=== PATIENT | female | born 1960 | race Caucasian/White ===

== ENCOUNTER 2020-08-16 08:25 | Emergency (ER) | payer MEDICARE ==
[~2020-08-16] VITALS: Ht 157.5 cm; Wt 75.0 kg
[~2020-08-16 08:25] MED LIST: ATOR10TA60 PO; DULO60CA45 PO; MIRT30TA93 PO; OMEP20CA16 PO; OMEP40CA45 PO; TEMA30CA PO
--- NOTE | 2020-08-16 09:01 | ED.ADGEN ---
Past Medical History Past Medical History: Anxiety, COPD, Depression, High Cholesterol Past Surgical History: Hysterectomy, Other Additional Past Surgical Histo: SVITLANA IN LEFT LEG Smoking Status: Current Every Day Smoker Alcohol Use: Occasionally Drug Use: None General Adult EDM: Chief Complaint: ABDOMINAL PAIN HPI: HPI: Patient is a 60-year-old female who arrives ambulatory to the emergency department complaint of 3-week history of loose stools. Patient also states during this time she is experienced lower abdominal/pelvic pain as well as pain with voiding. Patient is concerned she may have a kidney infection as a relates to her lower abdominal pain. Patient states she tried to meet with her primary care physician however she was unable to obtain an appointment. Patient denies any fevers. She further denies any upper abdominal pain, chest pain or shortness of air. She is awake, alert and nontoxic-appearing. Review of Systems: Review of Systems: Constitutional: Denies fever or chills. [] Eyes: Denies change in visual acuity. [] HENT: Denies nasal congestion or sore throat. [] Respiratory: Denies cough or shortness of breath. [] Cardiovascular: Denies chest pain or edema. [] GI: Reports abdominal pain. Denies nausea, vomiting, bloody stools or diarrhea. [] : Reports dysuria. [] Musculoskeletal: Denies back pain or joint pain. [] Integument: Denies rash. [] Neurologic: Denies headache, focal weakness or sensory changes. [] Endocrine: Denies polyuria or polydipsia. [] Lymphatic: Denies swollen glands. [] Psychiatric: Denies depression or anxiety. [] Family History: Family History: Noncontributory Current Medications: Current Medications Medications (Trade) Dose Ordered Sig/Meek Start Time Stop Time Status Last Admin Dose Admin Info (CONTRAST GIVEN -- Rx MONITORING) 1 each PRN DAILY PRN 08/16/20 11:00 08/18/20 10:59 Iohexol (Omnipaque 300 Mg/ml) 75 ml 1X ONCE 08/16/20 11:00 08/16/20 11:01 DC 08/16/20 10:57 75 ML Allergies: Allergies: Allergies Coded Allergies Type Severity Reaction Last Updated Verified No Known Drug Allergies 08/28/15 No Physical Exam: PE: Constitutional: Well developed, well nourished, no acute distress, non-toxic appearance. [] HENT: Normocephalic, atraumatic, bilateral external ears normal, oropharynx moist, no oral exudates, nose normal. [] Eyes: PERRLA, EOMI, conjunctiva normal, no discharge. [] Neck: Normal range of motion, no tenderness, supple, no stridor. [] Cardiovascular:Heart rate regular rhythm, no murmur [] Lungs & Thorax: Bilateral breath sounds clear to auscultation [] Abdomen: Bowel sounds normal, soft, no tenderness, no masses, no pulsatile masses. [] Skin: Warm, dry, no erythema, no rash. [] Back: No tenderness, no CVA tenderness. [] Extremities: No tenderness, no cyanosis, no clubbing, ROM intact, no edema. [] Neurologic: Alert and oriented X 3, normal motor function, normal sensory function, no focal deficits noted. [] Psychologic: Affect normal, judgement normal, mood normal. [] Current Patient Data: Labs: Laboratory Tests Test 08/16/20 08:30 08/16/20 09:25 Urine Collection Type Unknown Urine Color Ramona Urine Clarity Clear Urine pH 6.0 (<5.0-8.0) Urine Specific [place] 1.025 (1.000-1.030) Urine Protein 30 mg/dL (NEG-TRACE) Urine Glucose (UA) Negative mg/dL (NEG) Urine Ketones (Stick) Trace mg/dL (NEG) Urine Blood Negative (NEG) Urine Nitrite Negative (NEG) Urine Bilirubin Negative (NEG) Urine Urobilinogen Dipstick 1.0 mg/dL (0.2 mg/dL) Urine Leukocyte Esterase Negative (NEG) Urine RBC 0 /HPF (0-2) Urine WBC 1-4 /HPF (0-4) Urine Squamous Epithelial Cells Many /LPF Urine Bacteria Few /HPF (0-FEW) Urine Mucus Mod /LPF White Blood Count 18.3 x10^3/uL (4.0-11.0) H Red Blood Count 4.32 x10^6/uL (3.50-5.40) Hemoglobin 14.2 g/dL (12.0-15.5) Hematocrit 40.7 % (36.0-47.0) Mean Corpuscular Volume 94 fL (79-100) Mean Corpuscular Hemoglobin 33 pg (25-35) Mean Corpuscular Hemoglobin Concent 35 g/dL (31-37) Red Cell Distribution Width 13.3 % (11.5-14.5) Platelet Count 227 x10^3/uL (140-400) Neutrophils (%) (Auto) 77 % (31-73) H Lymphocytes (%) (Auto) 13 % (24-48) L Monocytes (%) (Auto) 9 % (0-9) Eosinophils (%) (Auto) 0 % (0-3) Basophils (%) (Auto) 1 % (0-3) Neutrophils # (Auto) 14.1 x10^3/uL (1.8-7.7) H Lymphocytes # (Auto) 2.3 x10^3/uL (1.0-4.8) Monocytes # (Auto) 1.6 x10^3/uL (0.0-1.1) H Eosinophils # (Auto) 0.1 x10^3/uL (0.0-0.7) Basophils # (Auto) 0.2 x10^3/uL (0.0-0.2) Segmented Neutrophils % 71 % (35-66) H Band Neutrophils % 8 % (0-9) Lymphocytes % 11 % (24-48) L Monocytes % 10 % (0-10) Platelet Estimate Adequate (ADEQUATE) Large Platelets Occ Sodium Level 140 mmol/L (136-145) Potassium Level 3.4 mmol/L (3.5-5.1) L Chloride Level 103 mmol/L (98-107) Carbon Dioxide Level 25 mmol/L (21-32) Anion Gap 12 (6-14) Blood Urea Nitrogen 12 mg/dL (7-20) Creatinine 0.9 mg/dL (0.6-1.0) Estimated GFR (Cockcroft-Gault) 63.7 Glucose Level 125 mg/dL (70-99) H Calcium Level 8.9 mg/dL (8.5-10.1) Laboratory Tests 08/16/20 09:25 Laboratory Tests 08/16/20 09:25 Vital Signs: Vital Signs Date Time Temp Pulse Resp B/P (MAP) Pulse Ox O2 Delivery O2 Flow Rate FiO2 08/16/20 09:38 80 18 132/72 (92) 95 Room Air 08/16/20 08:33 97.6 97.6 EKG: EKG: [] Heart Score: C/O Chest Pain: No Risk Factors: Risk Factors: DM, Current or recent (<one month) smoker, HTN, HLP, family history of CAD, obesity. Risk Scores: Score 0 - 3: 2.5% MACE over next 6 weeks - Discharge Home Score 4 - 6: 20.3% MACE over next 6 weeks - Admit for Clinical Observation Score 7 - 10: 72.7% MACE over next 6 weeks - Early Invasive Strategies Radiology/Procedures: Radiology/Procedures: [] Impression: [facility] [address] [place] [address] IMAGING REPORT Signed PATIENT: BAYLEE URBINA ACCOUNT: [id number] : 1960 LOCATION: ER AGE: 60 SEX: F EXAM STATUS: REG ER ORD. PHYSICIAN: MOSHE VICTOR DO REASON: Lower abdominal pain PROCEDURE: CT ABD PELV W/ IV CONTRST ONLY PQRS Compliance Statement: One or more of the following individualized dose reduction techniques were utilized for this examination: 1. Automated exposure control 2. Adjustment of the mA and/or kV according to patient size 3. Use of iterative reconstruction technique Exam performed: CT abdomen and pelvis with contrast HISTORY: Left lower abdominal pain. DATE OF SERVICE: 08/16/2020. COMPARISON: None available TECHNIQUE: Contiguous helical acquisitions are obtained through the abdomen and pelvis during intravenous administration of 75 cc of Omnipaque 300. Sagittal and coronal reformatted images are obtained and reviewed. FINDINGS: Diffuse sigmoid diverticulosis with inflammatory changes in the left lower quadrant and pelvis consistent with acute diverticulitis. No microperforation or abscess formation is identified. Lung bases are clear. The visualized heart is normal. Mild diffuse hepatic steatosis. The gallbladder, spleen and pancreas appear normal. Both adrenal glands and bilateral kidneys are normal in size with symmetric excretion of contrast via both kidneys. There is mild asymmetric cortical atrophy of the right superior renal pole. There is no hydronephrosis or nephrolithiasis. Aorta is normal in caliber without aneurysm. The small and large bowel loops are nondilated and unremarkable. Appendix is partially visualized and appears normal. Urinary bladder is partially decompressed. Hysterectomy. No adnexal masses are seen. IMPRESSION: Sigmoid diverticulosis with acute diverticulitis. No microperforation or abscess formation is seen. Diffuse hepatic steatosis. Asymmetric cortical thickening of the right superior renal pole. Correlate with a history of prior infection or surgery. Electronically signed by: Charla Payan MD (08/16/2020 11:24 AM) [id number] DICTATED and SIGNED BY: CHARLA PAYAN MD DATE: 08/16/20 [id number] 0 Course & Med Decision Making: Course & Med Decision Making Pertinent Labs and Imaging studies reviewed. (See chart for details) The patient is findings consistent with acute diverticulitis. I have offered the patient admission to the hospital however she is deferred and asked to be discharged as she wants to try and treat this on an outpatient basis. I have encouraged her to return with any fevers, worsening abdominal pain or new diarrhea/hematochezia. The patient understands and has agreed to do so. She is nontoxic-appearing and resting comfortably. She is stable for discharge. Dragon Disclaimer: [place]rington Disclaimer: This electronic medical record was generated, in whole or in part, using a voice recognition dictation system. Departure Departure Impression: Primary Impression: Acute diverticulitis Disposition: HOME / SELF CARE / HOMELESS Condition: STABLE Referrals: AMILCAR BRADLEY MD (PCP) Patient Instructions: Diverticulitis Scripts Ciprofloxacin Hcl (CIPROFLOXACIN HCL) 500 Mg Tablet 1 TAB PO BID for 7 Days, #14 TAB Prov: MOSHE VICTOR DO 08/16/20 Metronidazole (METRONIDAZOLE) 500 Mg Tablet 1 TAB PO TID for 10 Days, #30 TAB 0 Refills Prov: MOSHE VICTOR DO 08/16/20 Hydrocodone/Acetaminophen (Hydrocodone-Acetamin 5-325 mg) 1 Each Tablet 1 EACH PO Q6HRS for 3 Days, #12 TAB Prov: MOSHE VICTOR DO 08/16/20 MOSHE VICTOR DO August 16, 2020 09:01
[2020-08-16 09:06] LABS: BILIRUBIN,URINE NEGATIVE (NEG); CLARITY,URINE CLEAR; COLOR,URINE AMBER; NITRITE,URINE NEGATIVE (NEG); PROTEIN,URINE 30 mg/dL (NEG-TRACE)
[2020-08-16 09:16] LABS: BACTERIA,URINE FEW /HPF (0-FEW)
[2020-08-16 09:17] LABS: RBC,URINE 0 /HPF (0-2)
[2020-08-16 09:39] LABS: BASO # 0.2 x10^3/uL (0.0-0.2); BASO % 1 % (0-3); EOS # 0.1 x10^3/uL (0.0-0.7); EOS % 0 % (0-3); HEMATOCRIT 40.7 % (36.0-47.0); HEMOGLOBIN 14.2 g/dL (12.0-15.5); LYMPH # 2.3 x10^3/uL (1.0-4.8); LYMPH % 13 % (24-48); MEAN CORPUSCULAR HEMOGLOBIN 33 pg (25-35); MEAN CORPUSCULAR HGB CONC 35 g/dL (31-37); MEAN CORPUSCULAR VOLUME 94 fL (79-100); MONO # 1.6 x10^3/uL (0.0-1.1); MONO % 9 % (0-9); NEUT # 14.1 x10^3/uL (1.8-7.7); NEUT % 77 % (31-73); PLATELET COUNT 227 x10^3/uL (140-400); RED BLOOD COUNT 4.32 x10^6/uL (3.50-5.40); RED CELL DISTRIBUTION WIDTH 13.3 % (11.5-14.5); WHITE BLOOD COUNT 18.3 x10^3/uL (4.0-11.0)
[2020-08-16 10:14] LABS: CALCIUM 8.9 mg/dL (8.5-10.1); CREATININE 0.9 mg/dL (0.6-1.0); GFR 63.7; POTASSIUM 3.4 mmol/L (3.5-5.1)
[2020-08-16 10:50] LABS: % BANDS 8 % (0-9); % LYMPHS 11 % (24-48); % MONOS 10 % (0-10); % SEGS 71 % (35-66); PLT ESTIMATE ADEQUATE (ADEQUATE)
[2020-08-16] MEDS ORDERED: IOHEXOL 300 MG/ML 100ML VIAL. IV ONE (11:00)
[2020-08-16] MEDS ORDERED: CONTRAST GIVEN. MC PRN (11:00)
--- NOTE | 2020-08-16 11:26 | RAD ---
PQRS Compliance Statement: One or more of the following individualized dose reduction techniques were utilized for this examinat ion: 1. Automated exposure control 2. Adjustment of the mA and/or kV according to patient size 3. Use of iterative reconstruction technique Exam performed: CT abdomen and pelvis with contrast HISTORY: Left lower abdominal pain. DATE OF SERVICE: 08/16/2020. COMPARISON: None available TECHNIQUE: Contiguous helical acquisitions are obtained through the abdomen and pelvis during intrave nous administration of 75 cc of Omnipaque 300. Sagittal and coronal reformatted images are obtained a nd reviewed. FINDINGS: Diffuse sigmoid diverticulosis with inflammatory changes in the left lower quadrant and pelvis consis tent with acute diverticulitis. No microperforation or abscess formation is identified. Lung bases are clear. The visualized heart is normal. Mild diffuse hepatic steatosis. The gallbladder, spleen and pancreas appear normal. Both adrenal glan ds and bilateral kidneys are normal in size with symmetric excretion of contrast via both kidneys. Th ere is mild asymmetric cortical atrophy of the right superior renal pole. There is no hydronephrosis or nephrolithiasis. Aorta is normal in caliber without aneurysm. The small and large bowel loops are nondilated and unremarkable. Appendix is partially visualized and appears normal. Urinary bladder is partially decompressed. Hysterectomy. No adnexal masses are seen. IMPRESSION: Sigmoid diverticulosis with acute diverticulitis. No microperforation or abscess formation is seen. Diffuse hepatic steatosis. Asymmetric cortical thickening of the right superior renal pole. Correlate with a history of prior in fection or surgery. Electronically signed by: Charla Payan MD (08/16/2020 11:24 AM) [id number]
[2020-08-16 11:40] VITALS: BP 127/70
[2020-08-16] MEDS ORDERED: HYDR-2759 PO (11:55)
[2020-08-16] MEDS ORDERED: METR-34 PO (11:55)
[2020-08-16] MEDS ORDERED: CIPR500T2 PO (11:55)
== END 2020-08-16 12:00 | disposition home or self-care (01) ==
LOC: ER 08:25
DX: K57.30 Diverticulosis of large intestine without perforation or abscess without bleeding (principal); J44.9 Chronic obstructive pulmonary disease, unspecified; E78.00 Pure hypercholesterolemia, unspecified; F17.200 Nicotine dependence, unspecified, uncomplicated; Z90.710 Acquired absence of both cervix and uterus
CPT/HCPCS: 36415; 74177; 80048; 81001; 85007; 85025; 99284; Q9967